=== PATIENT | male | born 1955 | race Two or more races ===

== ENCOUNTER 2017-12-22 09:55 | Outpatient (CLI) | payer OTHER | END 2017-12-22 10:08 | disposition home or self-care (01) | LOC: NUCLEAR 09:55 | DX: M85.80 Other specified disorders of bone density and structure, unspecified site (principal); M47.897 Other spondylosis, lumbosacral region; M51.36 Other intervertebral disc degeneration, lumbar region; M51.37 Other intervertebral disc degeneration, lumbosacral region; M81.0 Age-related osteoporosis without current pathological fracture; M43.16 Spondylolisthesis, lumbar region ==